=== PATIENT | male | born 1950 | race Caucasian/White ===

== ENCOUNTER 2016-08-29 06:47 | Day surgery (SDC) | payer BC ==
[2016-08-29] MEDS ORDERED: SIMETHICONE 40 MG/0.6 ML ML ONE (07:47)
[2016-08-29] MEDS ORDERED: GLYCOPYRROLATE 0.2 MG/ML VIAL ONE (07:49)
[2016-08-29 08:30] VITALS: BP_SYST 115
[2016-08-29] MEDS: MIDAZOLAM HCL 5 MG/5 ML VIAL ONE ×3 (08:54→09:03)
[2016-08-29] MEDS: MEPERIDINE HCL/PF 100 MG/ML AMP ONE ×2 (08:54→09:00)
== END 2016-08-29 10:12 | disposition home or self-care (01) ==
LOC: SDS 06:47 → SMU 06:58 → SDS 10:12
PROVIDERS: ATTEND Colon & Rectal Surgery
DX: Z12.11 Encounter for screening for malignant neoplasm of colon (principal); D12.2 Benign neoplasm of ascending colon; D12.4 Benign neoplasm of descending colon; K64.8 Other hemorrhoids; F17.200 Nicotine dependence, unspecified, uncomplicated
CPT/HCPCS: 45380; 88305; J2175; J2250; J7030; J3490

== ENCOUNTER 2016-09-19 06:05 | Day surgery (SDC) | payer BC ==
[~2016-09-19] VITALS: Ht 170.2 cm; Wt 68.9 kg
[2016-09-19] MEDS ORDERED: CEFAZOLIN SOD 1 GM in D5W 50 ML IV ONE (07:00)
[2016-09-19] MEDS ORDERED: PROPOFOL 200MG/ 20ML VIAL (DIPRIVAN) IV ONE (09:10)
[2016-09-19] MEDS ORDERED: CEFAZOLIN 1 GM IVPB PREMIX 50 ML IV ONE (09:10)
[2016-09-19] MEDS ORDERED: ROCURONIUM BROMIDE 10 MG/ML (ZEMURON) IV ONE (09:10)
[2016-09-19] MEDS ORDERED: ONDANSETRON HCL 4 MG/2 ML VIAL IVP ONE (09:10)
[2016-09-19] MEDS ORDERED: DEXAMETHASONE SOD PHOSPHATE 4 MG/ML VIAL IVP ONE (09:10)
[2016-09-19] MEDS ORDERED: NS IRRIG SOLN 1000 ML IR ONE (09:10)
[2016-09-19] MEDS ORDERED: MIDAZOLAM HCL 5 MG/5 ML VIAL IVP ONE (09:10)
[2016-09-19] MEDS ORDERED: fentaNYL CITRATE 250 MCG/5 ML AMP IV ONE (09:10)
[2016-09-19] MEDS ORDERED: SEVOFLURANE 15 MIN GAS INH ONE (09:10)
[2016-09-19] MEDS ORDERED: LR 1,000 ML IV.SOLN IV ONE (09:10)
[2016-09-19] MEDS ORDERED: KETOROLAC TROMETHAMINE 30 MG VIAL IVP ONE (09:10)
[2016-09-19] MEDS ORDERED: POLYMYXIN 500,000/BACIT.10,000 UNITS in NS IRR 1 L IR ONE (10:02)
[2016-09-19] MEDS ORDERED: D5/0.45 NS 1,000 ML IV SCH (10:28)
[2016-09-19] MEDS ORDERED: HYDROcodone/ACETAMIN 5-325 MG TAB (NORCO/ VICODIN) PO PRN ×2 (10:30)
[2016-09-19] MEDS ORDERED: HYDROmorphone 1 MG INJ. 1 MG/ML AMPUL IVP PRN ×2 (10:30→11:00)
[2016-09-19] MEDS ORDERED: LR 1,000 ML IV SCH (10:53)
[2016-09-19] MEDS ORDERED: HYDROmorphone 2 MG/ML VIAL IVP PRN ×2 (11:00)
[2016-09-19] MEDS ORDERED: MEPERIDINE HCL/PF 25 MG/ML DISP.SYRIN IVP PRN (11:00)
[2016-09-19 11:27] VITALS: BP_SYST 120
== END 2016-09-19 15:10 | disposition home or self-care (01) ==
LOC: SDS 06:05 → SMU 06:06 → EDSTATUS 07:30 → SDS 15:10
PROVIDERS: ATTEND Colon & Rectal Surgery
DX: K40.30 Unilateral inguinal hernia, with obstruction, without gangrene, not specified as recurrent (principal); D17.6 Benign lipomatous neoplasm of spermatic cord; Z80.51 Family history of malignant neoplasm of kidney; F17.200 Nicotine dependence, unspecified, uncomplicated; K64.4 Residual hemorrhoidal skin tags
CPT/HCPCS: 49507; 87081; C1781; J0690; J1100; J1885; J2250; J2405; J2704; J3010; J7060; J7120